=== PATIENT | male | born 1995 | race Hispanic/Latino ===

== ENCOUNTER 2018-08-29 13:50 | Emergency (ER) | payer OTHER ==
[2018-08-29 13:57] VITALS: BP 117/71; PULSE 94; RESP 19; TEMP 98.2; O2SAT 99
--- NOTE | 2018-08-29 14:45 | ED PDOC ---
HPI: Head Injury Time Seen by Provider: 08/29/18 13:56 Chief Complaint (Nursing): Abnormal Skin Integrity Chief Complaint (Provider): Head Injury History Per: Patient History/Exam Limitations: no limitations Injury Occurred (Timing): Days Ago: (yesterday afternoon at 1230) Patient States: Fell Striking Head (on ground) Additional Complaint(s): 22 year old male presents to the ED for evaluation of a head injury. Patient reports that yesterday around 1230 he was drinking alcohol and tripped over a curb, hitting his head on the ground sustaining a laceration to his left forehead. Initially, patient did not think he wound require wound repair, but upon waking up this morning with a headache he became concerned and decided he may need stitches. Otherwise, denies loss of consciousness, nausea, vomiting, neck pain, previous TBI, and other injury. Tetanus up to date PMD: Kin Crespo in [facility] Past Medical History Reviewed: Historical Data, Nursing Documentation, Vital Signs Vital Signs: Last Vital Signs Temp 98.2 F 08/29/18 13:53 Pulse 94 H 08/29/18 13:53 Resp 19 08/29/18 13:53 BP 117/71 08/29/18 13:53 Pulse Ox 99 08/29/18 13:53 - Medical History PMH: No Chronic Diseases - Surgical History Surgical History: No Surg Hx - Family History Family History: States: Unknown Family Hx - Social History Current smoker - smoking cessation education provided: No Alcohol: Social Drugs: Denies - Immunization History Hx Tetanus Toxoid Vaccination: Yes (<6 months ago) - Allergies Allergies/Adverse Reactions: Allergies Allergy/AdvReac Type Severity Reaction Status Date / Time No Known Allergies Allergy Verified 08/29/18 14:01 Review of Systems ROS Statement: Except As Marked, All Systems Reviewed And Found Negative Gastrointestinal: Negative for: Nausea, Vomiting Musculoskeletal: Negative for: Neck Pain Skin: Positive for: Other (laceration to left forehead) Neurological: Positive for: Headache. Negative for: Other (loss of consciousness) Physical Exam - Reviewed Nursing Documentation Reviewed: Yes Vital Signs Reviewed: Yes - Physical Exam Appears: Positive for: No Acute Distress Head Exam: Positive for: NORMOCEPHALIC. Negative for: ATRAUMATIC (t-shaped laceration on left forehead extending into left upper eyelid approximately 3.5cm with surrounding superficial abrasions including left zygoma) Eye Exam: Positive for: Normal appearance, EOMI (including upward gaze), PERRL ENT: Positive for: TM Is/Are (unremarkable with no hemotympanum bilaterally) Neurologic/Psych: Positive for: Alert, Oriented (x3), Gait (steady, unassisted). Negative for: Motor/Sensory Deficits, Aphasia, Facial Droop - ECG O2 Sat by Pulse Oximetry: 99 (RA) Pulse Ox Interpretation: Normal Medical Decision Making Medical Decision Making: Time: 1401 Initial Impression: head laceration Initial Plan: --CT head without contrast --CT maxillofacial without contrast --Plastic surgery consult 1443 CT Head FINDINGS: HEMORRHAGE: No intracranial hemorrhage. BRAIN: No mass effect or edema. No atrophy or chronic microvascular ischemic changes. VENTRICLES: Unremarkable. No hydrocephalus. CALVARIUM: Unremarkable. PARANASAL SINUSES: Unremarkable as visualized. No significant inflammatory changes. MASTOID AIR CELLS: Unremarkable as visualized. No inflammatory changes. OTHER FINDINGS: None. IMPRESSION: No acute intracranial pathology. 1444 Dr. Chavarria relocated patient to trauma room for suture repair. 1446 CT Maxillofacial FINDINGS: NASAL BONES: Unremarkable. ORBITS: Unremarkable. PARANASAL SINUSES/ MASTOIDS: Clear. MAXILLA: Unremarkable. MANDIBLE/ TEMPOROMANDIBULAR JOINTS: Unremarkable. SKULL BASE: Unremarkable. TEMPORAL BONES: Middle ears and mastoid grossly unremarkable. OTHER FINDINGS: None. IMPRESSION: Unremarkable non contrast enhanced CT of the maxillofacial bones. Scribe Attestation: Documented by Eneida Arias, acting as a scribe for Dawson Davis PA-C. Provider Scribe Attestation: All medical record entries made by the Scribe were at my direction and personally dictated by me. I have reviewed the chart and agree that the record accurately reflects my personal performance of the history, physical exam, medical decision making, and the department course for this patient. I have also personally directed, reviewed, and agree with the discharge instructions and disposition. Disposition - Clinical Impression Clinical Impression: Head injury, Facial laceration - Patient ED Disposition Is Patient to be Admitted: No - Disposition Referrals: Gabbi Chavarria MD [Medical Doctor] - Disposition: Routine/Home Disposition Time: 15:01 Condition: STABLE Additional Instructions: FOLLOW UP WITH DR. CHAVARRIA SCHEDULED RETURN TO ED IMMEDIATELY IF SYMPTOMS WORSEN FELIX FUNK, thank you for letting us take care of you today. Your provider was Chary Valdovinos MD and you were treated for LT HEAD INJURY. The emergency medical care you received today was directed at your acute symptoms. If you were prescribed any medication, please fill it and take as directed. It may take several days for your symptoms to resolve. Return to the Emergency Department if your symptoms worsen, do not improve, or if you have any other problems. Please contact your doctor or call one of the physicians/clinics you have been referred to that are listed on the Patient Visit Information form that is included in your discharge packet. Bring any paperwork you were given at discharge with you along with any medications you are taking to your follow up visit. Our treatment cannot replace ongoing medical care by a primary care pro vider outside of the emergency department. Thank you for allowing the [facility] team to be part of your care today. If you had an X-Ray or CT scan: A Radiologist will review the ED reading if any change in treatment is needed we will contact you. If you had a blood, urine, or wound culture: It will take several days for the results, if any change in treatment is needed we will contact you. If you had an STI test: It will take 48 hours for the results. Please call after 1 week if you have not heard back. Instructions: Laceration Repair With Stitches (DC), Head Injury Observation (DC) Forms: [facility] ([place])
--- NOTE | 2018-08-29 14:47 | CT ---
Date of service: 08/29/2018 PROCEDURE: CT HEAD WITHOUT CONTRAST. HISTORY: trauma COMPARISON: None available. TECHNIQUE: Axial computed tomography images were obtained through the head/brain without intravenous contrast. Radiation dose: Total exam DLP = 936.05 mGy-cm. This CT exam was performed using one or more of the following dose reduction techniques: Automated exposure control, adjustment of the mA and/or kV according to patient size, and/or use of iterative reconstruction technique. FINDINGS: HEMORRHAGE: No intracranial hemorrhage. BRAIN: No mass effect or edema. No atrophy or chronic microvascular ischemic changes. VENTRICLES: Unremarkable. No hydrocephalus. CALVARIUM: Unremarkable. PARANASAL SINUSES: Unremarkable as visualized. No significant inflammatory changes. MASTOID AIR CELLS: Unremarkable as visualized. No inflammatory changes. OTHER FINDINGS: None. IMPRESSION: No acute intracranial pathology.
--- NOTE | 2018-08-29 14:49 | CT ---
Date of service: 08/29/2018 PROCEDURE: CT MAXILLOFACIAL BONES WITHOUT CONTRAST HISTORY: trauma COMPARISON: None available. TECHNIQUE: Contiguous axial CT images of the maxillofacial bones were obtained. Coronal and sagittal reformats were generated. Radiation dose: Total exam DLP = 917.45 mGy-cm. This CT exam was performed using one or more of the following dose reduction techniques: Automated exposure control, adjustment of the mA and/or kV according to patient size, and/or use of iterative reconstruction technique. FINDINGS: NASAL BONES: Unremarkable. ORBITS: Unremarkable. PARANASAL SINUSES/ MASTOIDS: Clear. MAXILLA: Unremarkable. MANDIBLE/ TEMPOROMANDIBULAR JOINTS: Unremarkable. SKULL BASE: Unremarkable. TEMPORAL BONES: Middle ears and mastoid grossly unremarkable. OTHER FINDINGS: None. IMPRESSION: Unremarkable non contrast enhanced CT of the maxillofacial bones.
== END 2018-08-29 15:19 | disposition home or self-care (01) ==
LOC: H.ER 13:50
DX: S09.90XA Unspecified injury of head, initial encounter (principal); S01.81XA Laceration without foreign body of other part of head, initial encounter; W01.0XXA Fall on same level from slipping, tripping and stumbling without subsequent striking against object, initial encounter